=== PATIENT | male | born 1990 | race Caucasian/White ===

== ENCOUNTER 2019-06-16 19:43 | Emergency (ER) | payer SELFPAY ==
--- NOTE | 2019-06-16 20:59 | EDM.PDOC ---
ED HPI GENERAL MEDICAL PROBLEM - General Chief Complaint: Chest Pain Stated Complaint: chest pain Time Seen by Provider: 06/16/19 19:57 Source of Information: Reports: Patient History Limitations: Reports: No Limitations - History of Present Illness INITIAL COMMENTS - FREE TEXT/NARRATIVE: Patient is a 28-year-old male who presents the ED complaining of right-sided chest pain that started this past Monday. Pain is sharp in nature worsened with stress and relieves on its own with no really known factors. Pain is not worse with palpation or taking a deep breath. There's been no cough. Slightly short of breath at times. No documented fever. States he does not consume excessive amount of caffeine on a daily basis. 1-2 Cokes a day 20 ounces. Smokes half pack to one pack per day. Denies any recreational drug use. Alcohol use described as daily when he has been around. States his last drink was 2 weeks ago. He denies being a alcoholic. States she's been on a lot of stress recently with starting new job and moving to [place]. He has no history of DVT/PE. His only pain swelling to his lower extremities. Has no pertinent past medical history. Currently taking no medications. Surgical history none. Chest Pain Score (Numeric/FACES): 7 - Related Data Allergies Allergy/AdvReac Type Severity Reaction Status Date / Time No Known Allergies Allergy Verified 06/16/19 19:50 Home Meds: Home Meds . [No Known Home Meds] 06/16/19 [History] Past Medical History - Past Health History Medical/Surgical History: Denies Medical/Surgical History Social & Family History - Tobacco Use Smoking Status *Q: Current Every Day Smoker Years of Tobacco use: 10 Packs/Tins Daily: 1 - Recreational Drug Use Recreational Drug Use: No ED ROS GENERAL - Review of Systems Review Of Systems: ROS reveals no pertinent complaints other than HPI. ED EXAM, GENERAL - Physical Exam Exam: See Below Exam Limited By: No Limitations General Appearance: Alert, WD/WN, No Apparent Distress Ears: Hearing Grossly Normal Nose: Normal Inspection Throat/Mouth: Normal Inspection, Normal Oropharynx, Normal Voice, No Airway Compromise Head: Atraumatic, Normocephalic Neck: Normal Inspection, Supple Respiratory/Chest: No Respiratory Distress, Lungs Clear, Normal Breath Sounds, No Accessory Muscle Use, Chest Non-Tender Cardiovascular: Normal Peripheral Pulses, No Murmur, Tachycardia Peripheral Pulses: 2+: Radial (R) GI/Abdominal: Normal Bowel Sounds, Soft, Non-Tender, No Organomegaly, No Distention Back Exam: Normal Inspection Extremities: Normal Inspection, Normal Range of Motion, Non-Tender, No Pedal Edema Neurological: Alert, Oriented, CN II-XII Intact, Normal Cognition, No Motor/ Sensory Deficits Psychiatric: Normal Affect, Normal Mood Skin Exam: Warm, Dry, Intact, Normal Color, No Rash Course - Vital Signs Last Recorded V/S: Last Vital Signs Temp 99.0 F 06/16/19 19:50 Pulse 104 H 06/16/19 19:50 Resp 25 H 06/16/19 19:50 BP 139/85 06/16/19 19:50 Pulse Ox 97 06/16/19 19:50 - Orders/Labs/Meds Labs: Laboratory Tests 06/16/19 06/16/19 06/16/19 Range/Units 20:17 20:17 20:17 WBC 7.60 (4.23-9.07) K/mm3 RBC 5.45 (4.63-6.08) M/mm3 Hgb 16.8 (13.7-17.5) gm/L Hct 48.6 (40.1-51.0) % MCV 89.2 (79.0-92.2) fl MCH 30.8 (25.7-32.2) pg MCHC 34.6 (32.2-35.5) g/dl RDW Std Deviation 46.8 H (35.1-43.9) fL Plt Count 301 (163-337) K/mm3 MPV 9.8 (9.4-12.3) fl Neutrophils % (Manual) 61 H (40-60) % Band Neutrophils % 0 (0-10) % Lymphocytes % (Manual) 26 (20-40) % Atypical Lymphs % 0 % Monocytes % (Manual) 8 (2-10) % Eosinophils % (Manual) 3 (0.8-7.0) % Basophils % (Manual) 2 H (0.2-1.2) Platelet Estimate Adequate RBC Morph Comment Normal PT 10.9 (9.7-12.0) SECONDS INR 1.00 APTT 25 (22-31) SECONDS D-Dimer, Quantitative (0.19-0.50) mg/L Sodium 141 (136-145) mEq/L Potassium 3.8 (3.5-5.1) mEq/L Chloride 103 (98-107) mEq/L Carbon Dioxide 26 (21-32) mEq/L Anion Gap 15.8 H (5-15) BUN 19 H (7-18) mg/dL Creatinine 1.4 H (0.7-1.3) mg/dL Est Cr Clr Drug Dosing TNP Estimated GFR (MDRD) > 60 (>60) mL/min BUN/Creatinine Ratio 13.6 L (14-18) Glucose 129 H (74-106) mg/dL Calcium 9.1 (8.5-10.1) mg/dL Total Bilirubin 0.3 (0.2-1.0) mg/dL AST 25 (15-37) U/L ALT 38 (16-63) U/L Alkaline Phosphatase 109 (46-116) U/L Troponin I < 0.017 (0.00-0.056) ng/mL C-Reactive Protein 0.2 (<1.0) mg/dL Total Protein 6.8 (6.4-8.2) g/dl Albumin 3.8 (3.4-5.0) g/dl Globulin 3.0 gm/dL Albumin/Globulin Ratio 1.3 (1-2) TSH 3rd Generation (0.358-3.74) uIU/mL Urine Color (Yellow) Urine Appearance (Clear) Urine pH (5.0-8.0) Ur Specific [place] (1.005-1.030) Urine Protein (Negative) Urine Glucose (UA) (Negative) Urine Ketones (Negative) Urine Occult Blood (Negative) Urine Nitrite (Negative) Urine Bilirubin (Negative) Urine Urobilinogen (0.2-1.0) Ur Leukocyte Esterase (Negative) Urine RBC (0-5) /hpf Urine WBC (0-5) /hpf Ur Epithelial Cells (0-5) /hpf Urine Bacteria (FEW) /hpf Urine Mucus (FEW) /hpf Urine Opiates Screen (UGYHAL=379) Ur Buprenorphine Scrn (CUTOFF=10) Ur Oxycodone Screen (EAJ8TH=872) Urine Methadone Screen (DPP2VN=559) Ur Propoxyphene Screen (WFVSEJ=871) Ur Barbiturates Screen (DNYEMP=175) Ur Tricyclics Screen (MZFCEQ=342) Ur Phencyclidine Scrn (CUTOFF=25) Ur Amphetamine Screen (TPAAFC=958) U Methamphetamines Scrn (DMFNFY=015) U Benzodiazepines Scrn (LJOWPL=229) U Cocaine Metab Screen (XUSVZJ=030) U Marijuana (THC) Screen (CUTOFF=50) 06/16/19 06/16/19 06/16/19 Range/Units 20:17 20:17 22:38 WBC (4.23-9.07) K/mm3 RBC (4.63-6.08) M/mm3 Hgb (13.7-17.5) gm/L Hct (40.1-51.0) % MCV (79.0-92.2) fl MCH (25.7-32.2) pg MCHC (32.2-35.5) g/dl RDW Std Deviation (35.1-43.9) fL Plt Count (163-337) K/mm3 MPV (9.4-12.3) fl Neutrophils % (Manual) (40-60) % Band Neutrophils % (0-10) % Lymphocytes % (Manual) (20-40) % Atypical Lymphs % % Monocytes % (Manual) (2-10) % Eosinophils % (Manual) (0.8-7.0) % Basophils % (Manual) (0.2-1.2) Platelet Estimate RBC Morph Comment PT (9.7-12.0) SECONDS INR APTT (22-31) SECONDS D-Dimer, Quantitative < 0.19 L (0.19-0.50) mg/L Sodium (136-145) mEq/L Potassium (3.5-5.1) mEq/L Chloride (98-107) mEq/L Carbon Dioxide (21-32) mEq/L Anion Gap (5-15) BUN (7-18) mg/dL Creatinine (0.7-1.3) mg/dL Est Cr Clr Drug Dosing Estimated GFR (MDRD) (>60) mL/min BUN/Creatinine Ratio (14-18) Glucose (74-106) mg/dL Calcium (8.5-10.1) mg/dL Total Bilirubin (0.2-1.0) mg/dL AST (15-37) U/L ALT (16-63) U/L Alkaline Phosphatase (46-116) U/L Troponin I (0.00-0.056) ng/mL C-Reactive Protein (<1.0) mg/dL Total Protein (6.4-8.2) g/dl Albumin (3.4-5.0) g/dl Globulin gm/dL Albumin/Globulin Ratio (1-2) TSH 3rd Generation 1.507 (0.358-3.74) uIU/mL Urine Color (Yellow) Urine Appearance (Clear) Urine pH (5.0-8.0) Ur Specific [place] (1.005-1.030) Urine Protein (Negative) Urine Glucose (UA) (Negative) Urine Ketones (Negative) Urine Occult Blood (Negative) Urine Nitrite (Negative) Urine Bilirubin (Negative) Urine Urobilinogen (0.2-1.0) Ur Leukocyte Esterase (Negative) Urine RBC (0-5) /hpf Urine WBC (0-5) /hpf Ur Epithelial Cells (0-5) /hpf Urine Bacteria (FEW) /hpf Urine Mucus (FEW) /hpf Urine Opiates Screen Negative (XDICFF=112) Ur Buprenorphine Scrn Negative (CUTOFF=10) Ur Oxycodone Screen Negative (VOQ5NK=900) Urine Methadone Screen Negative (RBQ6UM=564) Ur Propoxyphene Screen Negative (AAXYNE=811) Ur Barbiturates Screen Negative (MXVWXE=187) Ur Tricyclics Screen Negative (EOAOXM=312) Ur Phencyclidine Scrn Negative (CUTOFF=25) Ur Amphetamine Screen Presumptive positive H (NADWZI=819) U Methamphetamines Scrn Presumptive positive H (MREHWQ=747) U Benzodiazepines Scrn Negative (PRRDLH=888) U Cocaine Metab Screen Negative (NZKMTD=024) U Marijuana (THC) Screen Presumptive positive H (CUTOFF=50) 06/16/19 Range/Units 22:38 WBC (4.23-9.07) K/mm3 RBC (4.63-6.08) M/mm3 Hgb (13.7-17.5) gm/L Hct (40.1-51.0) % MCV (79.0-92.2) fl MCH (25.7-32.2) pg MCHC (32.2-35.5) g/dl RDW Std Deviation (35.1-43.9) fL Plt Count (163-337) K/mm3 MPV (9.4-12.3) fl Neutrophils % (Manual) (40-60) % Band Neutrophils % (0-10) % Lymphocytes % (Manual) (20-40) % Atypical Lymphs % % Monocytes % (Manual) (2-10) % Eosinophils % (Manual) (0.8-7.0) % Basophils % (Manual) (0.2-1.2) Platelet Estimate RBC Morph Comment PT (9.7-12.0) SECONDS INR APTT (22-31) SECONDS D-Dimer, Quantitative (0.19-0.50) mg/L Sodium (136-145) mEq/L Potassium (3.5-5.1) mEq/L Chloride (98-107) mEq/L Carbon Dioxide (21-32) mEq/L Anion Gap (5-15) BUN (7-18) mg/dL Creatinine (0.7-1.3) mg/dL Est Cr Clr Drug Dosing Estimated GFR (MDRD) (>60) mL/min BUN/Creatinine Ratio (14-18) Glucose (74-106) mg/dL Calcium (8.5-10.1) mg/dL Total Bilirubin (0.2-1.0) mg/dL AST (15-37) U/L ALT (16-63) U/L Alkaline Phosphatase (46-116) U/L Troponin I (0.00-0.056) ng/mL C-Reactive Protein (<1.0) mg/dL Total Protein (6.4-8.2) g/dl Albumin (3.4-5.0) g/dl Globulin gm/dL Albumin/Globulin Ratio (1-2) TSH 3rd Generation (0.358-3.74) uIU/mL Urine Color Yellow (Yellow) Urine Appearance Slt cloudy H (Clear) Urine pH 6.0 (5.0-8.0) Ur Specific [place] 1.025 (1.005-1.030) Urine Protein Negative (Negative) Urine Glucose (UA) Negative (Negative) Urine Ketones Negative (Negative) Urine Occult Blood Negative (Negative) Urine Nitrite Negative (Negative) Urine Bilirubin Negative (Negative) Urine Urobilinogen 0.2 (0.2-1.0) Ur Leukocyte Esterase Negative (Negative) Urine RBC 0-5 (0-5) /hpf Urine WBC 0-5 (0-5) /hpf Ur Epithelial Cells 0-5 (0-5) /hpf Urine Bacteria Few (FEW) /hpf Urine Mucus Few (FEW) /hpf Urine Opiates Screen (RWKTIE=717) Ur Buprenorphine Scrn (CUTOFF=10) Ur Oxycodone Screen (VMP4VV=732) Urine Methadone Screen (KOD2RC=670) Ur Propoxyphene Screen (NNZHFB=229) Ur Barbiturates Screen (YTGCEP=698) Ur Tricyclics Screen (SCRBRO=050) Ur Phencyclidine Scrn (CUTOFF=25) Ur Amphetamine Screen (QEWKHO=568) U Methamphetamines Scrn (CJFIGA=814) U Benzodiazepines Scrn (GCPHQS=294) U Cocaine Metab Screen (KUSSEG=393) U Marijuana (THC) Screen (CUTOFF=50) Meds: Medications Discontinued Medications Generic Name Dose Route Start Last Admin Trade Name Freq PRN Reason Stop Dose Admin Sodium Chloride 1,000 mls @ 999 mls/hr 06/16/19 21:46 06/16/19 22:04 Normal Saline IV 06/16/19 22:46 999 mls/hr ONETIME ONE Administration Sodium Chloride 1,000 mls @ 999 mls/hr 06/16/19 21:46 06/16/19 22:04 Normal Saline IV 06/16/19 22:46 999 mls/hr .BOLUS ONE Administration Sodium Chloride 10 ml 06/16/19 21:46 06/16/19 22:04 Saline Flush FLUSH 10 ml ASDIRECTED PRN Administration Keep Vein Open - Re-Assessments/Exams Free Text/Narrative Re-Assessment/Exam: On exam patient's initial vital signs include: Blood pressure 139/85, temperature 99.0, pulse rate 104 and regular, O2 sats 97% on room air, respiratory rate 25. Patient complains of right-sided chest discomfort pinpoint localized rated 5 out of 10. States usually comes on with stress. Resolved on its own. This has been doing so over the last few days. He has not been consuming any energy drinks but notes he does drink 2x 20 ounce Cokes a day. Patient does smoke approximately half pack to one pack per day. Denies any drug use. He has no history of DVT/PE. Initial labs and studies will include: CBC, chem 14, CRP, d-dimer, drug screen, troponin, UA, chest x-ray two-view, EKG. EKG sinus tachycardia rate of [address] changes noted. Chest x-ray revealed no acute findings. This was reviewed with Dr. Mendez. Final interpretation is pending. Labs reviewed: CBC essentially normal. Sodium, potassium, CO2 all within normal limits. AG is slightly elevated at 15.8. Creatinine 1.4. Glucose 129. Troponin normal. CRP 0.2. 2044 Patient has not provided a UA. D-dimer within normal limits. 2104 reassessment, patient resting comfortably. He is drinking water. No UA sample has been provided. Heart rate 105 and regular. 06/16/19 21:33 Patient refuses to provide UA. Patient has no symptoms. Vital signs have been stable. HR remains in the low 100's. 2147 Nursing staff patient is trying to provide a UA sample. With bearing down patients heart rate goes up in the 140s. Pressures increase as well. TSH is pending. I have opted to start a IV with 2 L of NS fluid bolus. TSH WNL. I suspect cause of the pain to the right chest maybe associated with tachycardia and/or musculoskeletal in origin. Patient was showing signs of slight dehydration. Rate has decreased with IV fluids. In addition I do believe portion of the tachycardia is related to anxiety. Patient with providing a UA and with staff entering his room would have elevation in heart rate. Heart rate has trended downward with IV fluids. He is ready to be discharged home. He will be discharged home prior to results of the UA. Patient had no further questions concerns. I have discussed return precautions with the patient. Discharge instructions as documented. 06/16/19 22:53 Prior to discharge I did go speak with the patient. He admits to using marijuana and meth. States it has been a few days. I have Instructed patient to seek help for his dependence. He will be in contact with [facility]. Urine drug tox came back positive for methamphetamines, amphetamines, and marijuana. Departure - Departure Time of Disposition: 22:45 Disposition: Home, Self-Care 01 Condition: Good Clinical Impression: Tachycardia, Dehydration, Atypical chest pain Instructions: Sinus Tachycardia, Dehydration, Adult, [id number], Nonspecific Chest Pain, [id number], Pain Without a Known Cause Referrals: PCP,None [Primary Care Provider] - Forms: ED Department Discharge Additional Instructions: Push the fluids. Refrain from consuming caffeinated beverages. Do not smoke. Get adequate rest. Follow-up with your PCP for further evaluation for anxiety. Return to the ED if you develop any new or worsening symptoms.
[2019-06-16] MEDS ORDERED: Sodium Chloride 0.9% 10 ML Syringe FLUSH PRN (21:46)
[2019-06-16] MEDS ORDERED: Sodium Chloride 0.9% 1,000 ML IV ONE ×2 (21:46)
--- NOTE | 2019-06-18 06:54 | CR ---
Chest: Portable view of the chest was obtained. Comparison: No prior chest x-ray is available. Heart size and mediastinum are normal. Lungs are clear with no acute parenchymal change. Minimal scoliosis is noted within the spine possibly positional. No acute bony abnormality is seen. Impression: 1. Nothing acute is appreciated on portable chest x-ray. Diagnostic code #1
== END 2019-06-16 22:55 | disposition home or self-care (01) ==
LOC: JD.ED 19:43
DX: R07.89 Other chest pain (principal); E86.0 Dehydration; R00.0 Tachycardia, unspecified; F17.210 Nicotine dependence, cigarettes, uncomplicated
CPT/HCPCS: 36415; 71045; 80053; 80306; 81001; 84443; 84484; 85007; 85027; 85379; 85610; 85730; 86140; 93005; 99285; J7040